=== PATIENT | female | born 1970 | race Caucasian/White ===

== ENCOUNTER → 2016-09-18 | Outpatient (CLI) | payer OTHER ==
--- NOTE | 2016-09-18 09:08 | US ---
EXAMINATION TYPE: US kidneys/renal and bladder DATE OF EXAM: 09/18/2016 COMPARISON: NONE CLINICAL HISTORY: R10.9 ABD PAIN. RIGHT FLANK PAIN X 5 DAYS AND HEMATURIA. EXAM MEASUREMENTS: Right Kidney: 10.4 X 5.9 X 5.0 cm Left Kidney: 11.0 X 5.1 X 4.4 cm Right Kidney: ECOGENIC FOCUS SEEN MID POLE = 0.94CM NO HYDRONEPHROSIS SEEN. Left Kidney: No hydronephrosis or masses seen Bladder: wnl INCIDENTAL FINDING RIGHT OVARIAN CYSTIC AREA SEEN = 3.6 X 2.4 X 3.7 CM. Urinary bladder is sonolucent. Posterior wall is normal. IMPRESSION: 1. Suggestion of right renal calcification without evidence of hydronephrosis. 2. Incidental note of a right ovarian cyst. Follow-up pelvic ultrasound in 6 weeks following the next normal menstrual period is recommended.
== END | disposition home or self-care (01) ==
LOC: RADUSWWP 07:49
PROVIDERS: ATTEND Internal Medicine
DX: N83.201 Unspecified ovarian cyst, right side (principal); R10.9 Unspecified abdominal pain
CPT/HCPCS: 76770

== ENCOUNTER → 2016-10-01 | Outpatient (CLI) | payer OTHER ==
--- NOTE | 2016-10-01 08:56 | XR ---
EXAMINATION TYPE: XR KUB DATE OF EXAM: 10/01/2016 COMPARISON: None INDICATION: Renal stone TECHNIQUE: Single view abdomen frontal projection FINDINGS: There is a normal bowel gas pattern. Psoas margins are normal. No organomegaly is present. There is a 0.4 cm calcification overlying the mid right kidney. 0.5 cm calcification is at the inferi or pole left kidney. IMPRESSION: 1. Suggestion of bilateral renal stones.
== END | disposition home or self-care (01) ==
LOC: RADXRMAIN 08:33
PROVIDERS: ATTEND Physician Assistant
DX: N20.0 Calculus of kidney (principal)
CPT/HCPCS: 74000

== ENCOUNTER → 2016-10-12 | Outpatient (CLI) | payer OTHER ==
[2016-10-12 14:18] LABS: Anisocytosis Moderate; Basophils % (A) 1 %; CHCM 28.2; Eosinophils # (A) 0.1 k/uL (0-0.7); Eosinophils % (A) 1 %; HDW 2.92; Hypochromasia Marked; Luc # (Auto) 0.11; Luc % (Auto) 2; Lymphocytes # (A) 1.9 k/uL (1.0-4.8); Lymphocytes % (A) 30 %; MCH 21.7 pg (25.0-35.0); MCHC 29.1 g/dL (31.0-37.0); MCV 74.8 fL (80.0-100.0); Mean Platelet Volume 6.6; Microcytosis Moderate; Monocytes # (A) 0.3 k/uL (0-1.0); Monocytes % (A) 4 %; Neutrophils % (A) 62 %; RBC 4.15 m/uL (3.80-5.40); WBC 6.4 k/uL (3.8-10.6); WBC (Perox) 6.82
[2016-10-12 14:26] LABS: Anion Gap 7 mmol/L; Blood Urea Nitrogen 12 mg/dL (7-17); Calcium 8.8 mg/dL (8.4-10.2); Carbon Dioxide 26 mmol/L (22-30); Chloride 109 mmol/L (98-107); Glucose 84 mg/dL (74-99); Non-African American GFR(MDRD) >60 (>60 ml/min/1.73 sqM); Potassium 3.7 mmol/L (3.5-5.1); Sodium 142 mmol/L (137-145)
== END | disposition home or self-care (01) ==
LOC: LABPAT 13:35
PROVIDERS: ATTEND Physician Assistant
DX: Z01.818 Encounter for other preprocedural examination (principal); N20.0 Calculus of kidney
CPT/HCPCS: 80048; 81025; 85025

== ENCOUNTER 2016-10-19 09:52 | Day surgery (SDC) | payer OTHER ==
[2016-10-14 08:56] VITALS: BMI 37.0
[~2016-10-19 09:52] MED LIST: DEXAMETHASONE SOD PHOSPHATE 10 MG/ML 1 ML VIAL IV ONE; LACTATED RINGERS 1,000 ML IV SCH; LIDOCAINE 1% 20 ML VIAL (10MG/ML) FOR IV START INTRADERMA PRN; ONDANSETRON 4 MG/2 ML VIAL IVP ONE; Pre Op ABX Message 1 EACH MISC MISCELLANE ONE; SCOPOLAMINE 1.5MG/72HR PATCH TRANSDERM ONE; fentaNYL (PF) 50 MCG/ML 2 ML AMP IV PRN
--- NOTE | 2016-10-19 09:53 | XR ---
EXAMINATION TYPE: XR KUB DATE OF EXAM: 10/19/2016 HISTORY: Pain Comparison: 10/01/2016 Single KUB is submitted for interpretation. Findings: Right renal calculi: 7.6 mm calculus mid to lower pole right kidney. Right ureteral calculi: None Visualized. Left renal calculi: 4.5 mm calculus lower pole left kidney. Left ureteral calculi: None Visualized. Pelvic calcifications: None Visualized. Bowel gas pattern is unremarkable. No free air. No mass effects. IMPRESSION: 1. Bilateral nephrolithiasis.
[2016-10-19 10:17] VITALS: RESP 16; TEMP 98.3
[2016-10-19] MEDS ORDERED: fentaNYL (PF) 50 MCG/ML 2 ML AMP ONE (11:01)
[2016-10-19] MEDS ORDERED: PROPOFOL 10 MG/ML 20 ML VIAL IV ONE (11:01)
[2016-10-19] MEDS ORDERED: MIDAZOLAM 2 MG/2 ML VIAL ONE (11:01)
[2016-10-19] MEDS ORDERED: KETAMINE 10 MG/ML 20 ML VIAL ONE (11:01)
[2016-10-19] MEDS ORDERED: GLYCOPYRROLATE 0.2 MG/ML 2 ML VIAL ONE (11:01)
[2016-10-19] MEDS ORDERED: LIDOCAINE 1% INJ 10MG/ML (20 ML MDV) ONE (11:01)
--- NOTE | 2016-10-19 11:54 | P.OP ---
Date of Procedure: 10/19/16 Preoperative Diagnosis: Right Renal Calculus Postoperative Diagnosis: Same Procedure(s) Performed: Right Extracorporeal Shockwave Lithotripsy (ESWL) Implants: Anesthesia: MAC Surgeon: Prabhakar Dumont Estimated Blood Loss (ml): 0 IV fluids (ml): 500 Pathology: none sent Condition: stable Disposition: PACU Indications for Procedure: She is a 46 year old female with a history of kidney stones. She has been having right flank pain for two weeks. She had a renal ultrasound done, showing a possible right renal calculus. She also had a KUB which was negative. Her urine today was not infected. She was sent for another KUB, and it shows a 4.5 mm calculus in the right kidney and a similar stone in the left kidney. She will be scheduled for right ESWL. Her urine was not infected today. In the future, she can have left ESWL. She will also need a 24 hour urine done after the stones are treated. Operative Findings: No definite fragmentation. Description of Procedure: The patient was taken to the operating room and placed on the Dornier Compact Delta II lithotripter in the supine position. The calculus was seen on biplanar fluoroscopy. Once the patient was properly positioned and sedated, lithotripsy was performed. The energy level was gradually increased per protocol, to an energy level of 5. After 200 shocks were administered, a 2 minute pause was instituted per protocol. A total of 2500 shocks were given at a rate of 80 shocks per minute. Fluoroscopy was utilized at a minimum to ensure proper positioning and determine the treatment status. The appearance of the calculus appeared to change, suggesting fragmentation may have occurred. The patient tolerated the procedure well was taken to the recovery room in stable condition. Instructions were given to strain the urine, and the patient will follow-up within one week.
[2016-10-19 13:32] VITALS: BP 141/73; PULSE 75
== END 2016-10-19 13:27 | disposition home or self-care (01) ==
LOC: ORWHC2ENDO 09:52
PROVIDERS: ATTEND Urology
DX: N20.0 Calculus of kidney (principal); J45.909 Unspecified asthma, uncomplicated; Z79.1 Long term (current) use of non-steroidal anti-inflammatories (NSAID); Z79.891 Long term (current) use of opiate analgesic; Z79.899 Other long term (current) drug therapy; Z88.5 Allergy status to narcotic agent; Z91.09 Other allergy status, other than to drugs and biological substances
CPT/HCPCS: 81025; 74000; 50590; J2250; J1100; J2405; J2001; J3010; J2704

== ENCOUNTER → 2016-10-23 | Outpatient (CLI) | payer OTHER ==
--- NOTE | 2016-10-23 10:46 | XR ---
EXAMINATION TYPE: XR KUB DATE OF EXAM: 10/23/2016 COMPARISON: 10/19/2016 INDICATION: Renal calculus TECHNIQUE: Single view abdomen FINDINGS: There is a normal bowel gas pattern. Psoas margins are normal. No organomegaly is present. There is a 0.4 cm calcification inferior pole left kidney. The right renal calculus is partially obsc ured by overlying fecal debris. This currently estimated to measure 0.9 cm in size although accurate assessment is difficult due to the fecal debris. IMPRESSION: 1. Bilateral renal stones
== END | disposition home or self-care (01) ==
LOC: RADXRMAIN 10:23
PROVIDERS: ATTEND Physician Assistant
DX: N20.0 Calculus of kidney (principal)
CPT/HCPCS: 74000

== ENCOUNTER → 2016-12-11 | Outpatient (CLI) | payer OTHER ==
[2016-12-11 08:51] LABS: Anisocytosis Slight; Basophils # (A) 0.1 k/uL (0-0.2); Basophils % (A) 1 %; CH 21.6; CHCM 28.3; Eosinophils # (A) 0.1 k/uL (0-0.7); Eosinophils % (A) 1 %; HCT 35.1 % (34.0-46.0); HGB 10.1 gm/dL (11.4-16.0); Hypochromasia Marked; Luc # (Auto) 0.13; Luc % (Auto) 2; Lymphocytes # (A) 1.5 k/uL (1.0-4.8); Lymphocytes % (A) 25 %; MCH 21.9 pg (25.0-35.0); MCHC 28.7 g/dL (31.0-37.0); MCV 76.2 fL (80.0-100.0); Mean Platelet Volume 6.5; Microcytosis Slight; Monocytes # (A) 0.3 k/uL (0-1.0); Monocytes % (A) 4 %; Neutrophils # (A) 3.9 k/uL (1.3-7.7); Neutrophils % (A) 67 %; RBC 4.61 m/uL (3.80-5.40); RDW 17.8 % (11.5-15.5); WBC 5.9 k/uL (3.8-10.6); WBC (Perox) 6.11
[2016-12-11 09:08] LABS: Anion Gap 11 mmol/L; Blood Urea Nitrogen 10 mg/dL (7-17); Carbon Dioxide 24 mmol/L (22-30); Chloride 108 mmol/L (98-107); Glucose 92 mg/dL (74-99); Non-African American GFR(MDRD) >60 (>60 ml/min/1.73 sqM); Potassium 3.8 mmol/L (3.5-5.1); Sodium 143 mmol/L (137-145)
== END | disposition home or self-care (01) ==
LOC: LABPAT 08:21
PROVIDERS: ATTEND Obstetrics & Gynecology Obstetrics
DX: Z01.812 Encounter for preprocedural laboratory examination (principal); D25.9 Leiomyoma of uterus, unspecified; N92.0 Excessive and frequent menstruation with regular cycle
CPT/HCPCS: 80051; 82565; 82947; 84520; 85025; 87086

== ENCOUNTER 2016-12-21 06:03 | Day surgery (SDC) | payer OTHER ==
[2016-12-17 13:34] VITALS: BMI 36.6
[~2016-12-21 06:03] MED LIST changes: -LIDOCAINE 1% 20 ML VIAL (10MG/ML) FOR IV START INTRADERMA PRN; -Pre Op ABX Message 1 EACH MISC MISCELLANE ONE; -SCOPOLAMINE 1.5MG/72HR PATCH TRANSDERM ONE; +ceFAZolin 2 GM in SODIUM CHLORIDE 0.9% 100 ML IVPB ONE; -fentaNYL (PF) 50 MCG/ML 2 ML AMP IV PRN
[2016-12-21 07:10] LABS: Prothrombin Time 10.1 sec (9.0-12.0)
[2016-12-21] MEDS ORDERED: LIDOCAINE 1% 20 ML VIAL (10MG/ML) FOR IV START INTRADERMA ONE (07:10)
[2016-12-21] MEDS ORDERED: SCOPOLAMINE 1.5MG/72HR PATCH TRANSDERM ONE (07:12)
[2016-12-21] MEDS ORDERED: BUPIVACAINE (PF) 0.25% 30 ML VIAL SQ ONE ×3 (07:22→07:54)
[2016-12-21] MEDS ORDERED: HYDROmorphone (PF) 1 MG/ML ONE (07:32)
[2016-12-21] MEDS ORDERED: LIDOCAINE 1% INJ 10MG/ML (20 ML MDV) ONE (07:32)
[2016-12-21] MEDS ORDERED: GLYCOPYRROLATE 0.2 MG/ML 2 ML VIAL ONE (07:32)
[2016-12-21] MEDS ORDERED: ROCURONIUM BROMIDE 10 MG/ML 10 ML VIAL IV ONE (07:32)
[2016-12-21] MEDS ORDERED: PROPOFOL 10 MG/ML 20 ML VIAL IV ONE (07:32)
[2016-12-21] MEDS ORDERED: MIDAZOLAM 2 MG/2 ML VIAL ONE (07:32)
[2016-12-21] MEDS ORDERED: fentaNYL (PF) 50 MCG/ML 2 ML AMP ONE (07:32)
[2016-12-21] MEDS ORDERED: ePHEDrine SULFATE/0.9% NACL/PF 50 MG/5 ML SYRINGE IV ONE (07:32)
[2016-12-21] MEDS ORDERED: SUCCINYLCHOLINE CHLORIDE 100 MG/5 ML SYR IV ONE (07:32)
[2016-12-21] MEDS ORDERED: NEOSTIGMINE 1 MG/ML 10 ML VIAL ONE (07:32)
[2016-12-21] MEDS ORDERED: SIMETHICONE 80 MG CHEWABLE PO PRN (09:38)
[2016-12-21] MEDS ORDERED: HYDROcodone/APAP 5-325MG 1 EACH TAB PO PRN (09:42)
--- NOTE | 2016-12-21 10:22 | P.OP ---
Date of Procedure: 12/21/16 Preoperative Diagnosis: Enlarged fibroid uterus, menorrhagia Postoperative Diagnosis: Same Procedure(s) Performed: Robotic-assisted vaginal hysterectomy, diagnostic cystoscopy Anesthesia: RAMSES Surgeon: Hortensia Robles Parimutuel Ticket Checker #1: Helen Aguilar Estimated Blood Loss (ml): 10 IV fluids (ml): 1,100 Urine output (ml): 300 Pathology: other (Uterus, cervix) Condition: stable Disposition: PACU Indications for Procedure: This is a 46-year-old female that presented with complaints of menorrhagia. On ultrasound examination and enlarged 15 cm uterus was noted with multiple enlarged fibroids. Definitive treatment was discussed with the patient in detail including medical management. Given the size of her uterus she elected definitive treatment with hysterectomy and ovarian conservation. Risks were reviewed with the patient in detail in the office prior to scheduling the surgery, including but not limited to infection, bleeding, damage to bladder, bowel, ureteric injury. Patient stated understanding informed consent was obtained at that time. Operative Findings: Enlarged uterus, normal ovaries bilaterally, normal pelvic and upper abdomen anatomy. Description of Procedure: Patient was taken to the operating room where general anesthesia was obtained without difficulty by the anesthesia department. She was then prepped and draped in the normal sterile fashion in the dorsal lithotomy position. Armijo catheter was then placed under sterile technique, and a weighted speculum was placed in the posterior vaginal vault. The anterior lip of the cervix was then grasped with a single-tooth tenaculum. The cervix was dilated and a V care uterine manipulator was advanced into the endometrial cavity as a means to manipulate the uterus throughout the procedure. The balloon was insufflated with air and the cervical cap was placed snugly against the cervix. All instruments were removed from the patient's vaginal vault at this time. Attention was then turned to the patient's abdomen where approximately 2 finger breaths above the umbilicus a small skin incision was made through this incision the Veress needle is placed. Once the procedure was deemed to be in the proper position with a drop of CO2 pressure with insufflation of CO2 gas CO2 insufflation was allowed to occur. Approximately 3 L of gas were used to obtain pneumoperitoneum. At this time the incision was elongated to 12 mm in the a 12 mm trocar and sleeve was placed through the incision and toward the pneumoperitoneum under direct visualization with the laparoscope in place. At this point the laparoscope and trocar were removed with the sheath remaining in place. The above-noted findings were visualized. The additional port sites were then placed at 10 cm lateral and 3 cm inferior to the midline port. These are 8 mm operative ports were placed under direct visualization. In the left upper quadrant a 12 mm trocar and sleeve is placed under direct visualization. At this time the da Lashanda robot was docked in usual fashion. In the right operative arm the monopolar scissors, the left operative arm the bipolar forceps. Attention was then turned to the patient's left uterine ovarian ligament. It was grasped and coagulated 2 and transected with good hemostasis being noted this continued through the broad and toward the round ligament which was transected after coagulation with good hemostasis. The bladder flap was then created from the left using sharp and blunt dissection. Attention was then turned to the patient's right uterine ovarian ligament which was visualized coagulated and transected. This continued through the broad and toward the round ligament which was coagulated and transected with good hemostasis the bladder flap was then created from the right using sharp and blunt dissection. The ascending branch of the uterine artery was then visualized on the right coagulated and transected with hemostasis being noted this was then repeated on the left ascending uterine artery hemostasis was appreciated on that side as well. At this point the only remaining attachment was a vaginal attachment therefore colpotomy incision was made in a circumferential fashion and the uterus was delivered through the vaginal opening after it was transected into 2 pieces. The vaginal cuff was then irrigated copiously hemostasis was appreciated. The vaginal cuff was then closed with [id number] sutures of 0 Vicryl. Approximate 5 sutures were used to obtain closure. At the end copious irrigation was used once again hemostasis was appreciated both ureters were visualized non-dilated, pulsating in the usual fashion. All instruments were removed from the patient's abdomen at this time. At this point attention was then turned the patient's Armijo catheter which was removed without difficulty, and a cystoscopy was performed. A cystoscope was placed through the urethra and toward the bladder the bladder bubble was noted in both ureteral orifices were visualized. The cystoscope was removed along with cystoscopy fluid and a Armijo catheter was replaced. Next attention was then turned the patient's abdomen where the skin incisions were closed with 4-0 Vicryl in a subcuticular fashion Steri-Strips and sterile dressings were applied as needed. All counts were correct 2 patient tolerated procedure well and was taken to recovery room awake and in stable condition
[2016-12-21] MEDS ORDERED: ONDANSETRON 4 MG/2 ML VIAL IVP ONE (10:44)
[2016-12-21] MEDS: HYDROmorphone 1 MG/ML 1 ML SYRINGE IVP PRN ×2 (10:44→10:50)
[2016-12-21] MEDS: LACTATED RINGERS 1,000 ML IV SCH ×2 (14:19→21:15)
[2016-12-21] MEDS: HYDROcodone/APAP 5-325MG 1 EACH TAB PO PRN ×2 (14:26→21:50)
[2016-12-21] MEDS: IBUPROFEN 600 MG TAB PO PRN (17:21)
[2016-12-21] MEDS: SENNOSIDES-DOCUSATE SODIUM 1 EACH TAB PO SCH (21:15)
[2016-12-22] MEDS: LACTATED RINGERS 1,000 ML IV SCH (06:50)
[2016-12-22 07:51] LABS: Anisocytosis Slight; Basophils % (A) 0 %; CH 21.6; CHCM 28.4; Eosinophils # (A) 0.1 k/uL (0-0.7); Eosinophils % (A) 0 %; HCT 31.7 % (34.0-46.0); HDW 3.11; HGB 9.1 gm/dL (11.4-16.0); Hypochromasia Marked; Luc # (Auto) 0.15; Luc % (Auto) 1; Lymphocytes # (A) 1.7 k/uL (1.0-4.8); Lymphocytes % (A) 13 %; MCH 21.9 pg (25.0-35.0); MCHC 28.9 g/dL (31.0-37.0); MCV 75.9 fL (80.0-100.0); Mean Platelet Volume 7.1; Microcytosis Slight; Monocytes # (A) 0.6 k/uL (0-1.0); Monocytes % (A) 4 %; Neutrophils # (A) 11.1 k/uL (1.3-7.7); Neutrophils % (A) 82 %; RBC 4.17 m/uL (3.80-5.40); RDW 17.5 % (11.5-15.5); WBC 13.6 k/uL (3.8-10.6); WBC (Perox) 14.24
--- NOTE | 2016-12-22 08:14 | P.PN ---
Subjective Principal diagnosis: Status post robotic hysterectomy with diagnostic cystoscopy This is a 46-year-old female that presented for robotic-assisted hysterectomy with diagnostic cystoscopy. She had noted menorrhagia with an enlarged uterus and fibroids. She elected definitive treatment with hysterectomy. For further details on the surgery please see the operative report. Postoperatively she has done well she is ambulated without difficulty, her Armijo was removed at 5 AM and we are awaiting of void. She is tolerating regular diet without nausea or vomiting. She states her pain is controlled with by mouth medication. Objective - Vital Signs Vital signs: Vital Signs Temp 97.4 F L 12/22/16 05:00 Pulse 65 12/22/16 05:00 Resp 16 12/22/16 05:00 BP 118/58 12/22/16 05:00 Pulse Ox 96 12/22/16 05:00 Intake & Output 12/21/16 12/22/16 12/22/16 18:59 06:59 18:59 Intake Total 1200 1000 Output Total 1060 700 Balance 140 300 Weight 93.89 kg Intake: IV 1100 Oral 100 1000 Output: Urine 1050 700 Estimated Blood Loss 10 Other: Voiding Method Indwelling Catheter Indwelling Catheter Toilet - Constitutional General appearance: Present: average body habitus - Respiratory Respiratory: bilateral: CTA - Cardiovascular Rhythm: regular - Gastrointestinal General gastrointestinal: Present: normal bowel sounds - Psychiatric Psychiatric: Present: A&O x's 3, appropriate affect - Labs CBC & Chem 7: 12/22/16 06:28 Labs: Abnormal Lab Results - Last 24 Hours (Table) 12/22/16 Range/Units 06:28 WBC 13.6 H (3.8-10.6) k/uL Hgb 9.1 L (11.4-16.0) gm/dL Hct 31.7 L (34.0-46.0) % MCV 75.9 L (80.0-100.0) fL MCH 21.9 L (25.0-35.0) pg MCHC 28.9 L (31.0-37.0) g/dL RDW 17.5 H (11.5-15.5) % Neutrophils # 11.1 H (1.3-7.7) k/uL Assessment and Plan (1) S/P hysterectomy Narrative/Plan: We will await a void this morning, once she has had a spontaneous void okay to discharge home. Discharge instructions were reviewed with the patient she is to follow up in 2 weeks. She is given prescriptions for Motrin, Kempner. Status: Acute (2) Fibroid uterus Status: Acute (3) Menorrhagia Status: Acute
--- NOTE | 2016-12-22 08:17 | P.DS ---
Providers Date of admission: 12/21/2016 Expected date of discharge: 12/22/16 Attending physician: Hortensia Robles Primary care physician: Dwight Early - Discharge Diagnosis(es) (1) S/P hysterectomy Current Visit: Yes Status: Acute (2) Fibroid uterus This is a 46-year-old female that presented to the office with complaints of menorrhagia, she subsequently had a transvaginal ultrasound revealing enlarged uterus with fibroids. She elected definitive treatment after informed consent was obtained she presented to [facility] yesterday for robotic- assisted hysterectomy with diagnostic cystoscopy. Postoperatively she did well and was without complaints on postop day 1 and is ready for discharge home after a spontaneous void. Current Visit: Yes Status: Acute (3) Menorrhagia Current Visit: Yes Status: Acute Plan - Discharge Summary New Discharge Prescriptions: No Action Cetirizine HCl [Zyrtec] 10 mg PO DAILY Discharge Medication List Cetirizine HCl [Zyrtec] 10 mg PO DAILY 12/17/16 [History] Follow up Appointment(s)/Referral(s): Hortensia Robles DO [Doctor of Osteopathic Medicine] - 2 Weeks Patient Instructions/Handouts: Hysterectomy (DC) Discharge Disposition: HOME SELF-CARE
[2016-12-22] MEDS: IBUPROFEN 600 MG TAB PO PRN (08:21)
[2016-12-22] MEDS: SENNOSIDES-DOCUSATE SODIUM 1 EACH TAB PO SCH (08:24)
[2016-12-22 08:59] VITALS: BP 124/67; PULSE 71; RESP 20; TEMP 98.8
== END 2016-12-22 10:15 | disposition home or self-care (01) ==
LOC: OR 06:03 → 6PED 09:36 → OR 12-22 10:15
PROVIDERS: ATTEND Obstetrics & Gynecology Obstetrics
DX: D25.9 Leiomyoma of uterus, unspecified (principal); N92.0 Excessive and frequent menstruation with regular cycle; Z88.3 Allergy status to other anti-infective agents; Z88.5 Allergy status to narcotic agent; Z79.899 Other long term (current) drug therapy
CPT/HCPCS: 58290; 81025; 86900; 86901; 85025; 85610; 86850; 88307; J2250; J1100; J2710; J0690; J2405; J2001; J3010; J1170; J0330; J2704

== ENCOUNTER → 2019-11-14 | Outpatient (CLI) | payer OTHER ==
--- NOTE | 2019-11-14 09:14 | XR ---
EXAMINATION TYPE: XR abdomen 1V DATE OF EXAM: 11/14/2019 COMPARISON: 10/23/2016 HISTORY: Left-sided pain TECHNIQUE: One view abdominal series FINDINGS: The osseous structures are intact. The bowel gas pattern is nonspecific. No suspicious calcification s overlying the renal outlines. Hypertrophic changes of the acetabulum. IMPRESSION: 1. Nonspecific abdomen.
== END | disposition home or self-care (01) ==
LOC: RADXRMAIN 08:53
PROVIDERS: ATTEND Urology
DX: N20.1 Calculus of ureter (principal)
CPT/HCPCS: 74018

== ENCOUNTER → 2019-11-16 | Outpatient (CLI) | payer BC ==
[2019-11-16 14:53] LABS: Basophils # (A) 0.1 k/uL (0-0.2); Basophils % (A) 1 %; Eosinophils # (A) 0.1 k/uL (0-0.7); Eosinophils % (A) 1 %; HCT 43.7 % (34.0-46.0); Lymphocytes # (A) 2.1 k/uL (1.0-4.8); Lymphocytes % (A) 24 %; MCH 29.4 pg (25.0-35.0); MCHC 32.1 g/dL (31.0-37.0); MCV 91.5 fL (80.0-100.0); Mean Platelet Volume 7.8; Monocytes # (A) 0.4 k/uL (0-1.0); Monocytes % (A) 5 %; Neutrophils # (A) 5.8 k/uL (1.3-7.7); Neutrophils % (A) 68 %; Platelet Count 178 k/uL (150-450); RBC 4.78 m/uL (3.80-5.40); WBC 8.6 k/uL (3.8-10.6)
[2019-11-16 15:05] LABS: African American GFR (CKD) >90 (>60 ml/min/1.73 sqM); Anion Gap 6 mmol/L; Blood Urea Nitrogen 14 mg/dL (7-17); Calcium 9.3 mg/dL (8.4-10.2); Carbon Dioxide 27 mmol/L (22-30); Chloride 107 mmol/L (98-107); Glucose 85 mg/dL (74-99); Non-African American GFR(CKD) 83 (>60 ml/min/1.73 sqM); Potassium 4.3 mmol/L (3.5-5.1); Sodium 140 mmol/L (137-145)
[2019-11-16 15:06] LABS: Appearance,Urine Clear (Clear); Bacteria,Urine Rare /hpf; Bilirubin,Urine Negative (Negative); Blood,Urine Trace (Negative); Color,Urine Light Yellow; Glucose,Urine (UA) Negative (Negative); Hyaline Casts,Urine 1 /lpf (0-2); Ketones,Urine Negative (Negative); Leukocyte Esterase,Urine Trace (Negative); Mucus,Urine Occasional /hpf; Nitrite,Urine Negative (Negative); PH, Urine 5.5 (5.0-8.0); Protein,Urine Negative (Negative); RBC,Urine <1 /hpf (0-5); Specific Gravity,Urine 1.009 (1.001-1.035); Squamous Epithelial Cell,Urine 2 /hpf (0-4); Urobilinogen,Urine <2.0 mg/dL (<2.0); WBC,Urine 2 /hpf (0-5)
== END | disposition home or self-care (01) ==
LOC: LABPAT 14:10
PROVIDERS: ATTEND Urology
DX: Z01.818 Encounter for other preprocedural examination (principal); N20.1 Calculus of ureter; R31.29 Other microscopic hematuria
CPT/HCPCS: 80048; 81001; 85025

== ENCOUNTER 2019-11-20 10:08 | Day surgery (SDC) | payer BC, OTHER ==
[2019-11-16 10:50] VITALS: BMI 33.8
--- NOTE | 2019-11-19 17:48 | P.GSHP ---
History of Present Illness H&P Date: 11/19/19 49 yo female with a history of stones. She recently was at [facility] er with a 7mm stone just below the iliac vessels She remained symptomatic with persistent hematuria A fu xray dint identify the stone BEcause her symptoms persist as well as the hematuria she comes for cysto with left retrograde pyelogram with probable ureteoscopy left and laser lithotripsy. - Constitutional Constitutional: Denies chills, Denies fever - EENT Eyes: denies blurred vision, denies pain Ears, nose, mouth and throat: Denies headache, Denies sore throat - Cardiovascular Cardiovascular: Denies chest pain, Denies shortness of breath - Respiratory Respiratory: Denies cough, Denies 7 - Gastrointestinal Gastrointestinal: Denies abdominal pain, Denies diarrhea, Denies nausea, Denies vomiting - Genitourinary (Female) Genitourinary: Denies dysuria, Denies hematuria - Genitourinary (Male) Genitourinary: Denies dysuria, Denies hematuria - Musculoskeletal Musculoskeletal: Denies myalgias - Integumentary Integumentary: Denies pruritus, Denies rash - Neurological Neurological: Denies numbness, Denies weakness - Psychiatric Psychiatric: Denies anxiety, Denies depression - Endocrine Endocrine: Denies fatigue, Denies weight change Past Medical History Past Medical History: Asthma Additional Past Medical History / Comment(s): kidney stones History of Any Multi-Drug Resistant Organisms: None Reported Past Surgical History: Hysterectomy, Orthopedic Surgery Additional Past Surgical History / Comment(s): Right shoulder impingement surgery X2, lithotripsy rt kidney Past Anesthesia/Blood Transfusion Reactions: Postoperative Nausea & Vomiting (PONV) Additional Past Anesthesia/Blood Transfusion Reaction / Comment(s): no hx blood transfusion Smoking Status: Never smoker - Past Family History Mother Family Medical History: Cancer Additional Family Medical History / Comment(s): skin Father Additional Family Medical History / Comment(s): arrythmia Medications and Allergies Home Medications Medication Instructions Recorded Confirmed Type Cetirizine HCl [Zyrtec] 10 mg PO DAILY 12/17/16 11/16/19 History Ibuprofen 200 - 400 mg PO Q6H PRN 11/16/19 11/16/19 History Allergies Allergy/AdvReac Type Severity Reaction Status Date / Time wheat Allergy Mild Itching Verified 08/13/20 10:31 codeine Allergy Nausea & Verified 11/16/19 10:31 Vomiting Iodine and Iodide Containing Allergy Swelling Verified 11/16/19 10:31 Produc shellfish derived [Shellfish] Allergy Swelling Verified 11/16/19 10:31 Surgical - Exam - General well developed, well nourished, moderate distress - Eyes PERRL - ENT no hearing loss - Neck trachea midline - Respiratory normal expansion, normal respiratory effort - Cardiovascular Rhythm: regular - Abdomen Abdomen: soft, tender - Integumentary no rash, no growths - Neurologic normal coordination, normal sensation - Musculoskeletal normal gait, normal posture - Psychiatric oriented to time, oriented to person, oriented to place, speech is normal, memory intact Results - Imaging Abdominal x-ray: report reviewed, image reviewed CT scan - abdomen: report reviewed, image reviewed CT scan - pelvis: report reviewed, image reviewed Assessment and Plan Assessment: Impression: Probable left ureteral stone Plan: Cysto with left retrograde pyelogram with possible ureteroscopy and laser lithotripsy left
[~2019-11-20 10:08] MED LIST changes: +AMPICILLIN 1,000 MG in SODIUM CHLORIDE 0.9% 50 ML IVPB ONE; +GENTAMICIN 100 MG in SODIUM CHLORIDE 0.9% 100 ML IVPB ONE; +MIDAZOLAM 2 MG/2 ML VIAL IV PRN; +SCOPOLAMINE 1.5MG/72HR PATCH TRANSDERM ONE; -ceFAZolin 2 GM in SODIUM CHLORIDE 0.9% 100 ML IVPB ONE; +fentaNYL (PF) 50 MCG/ML 2 ML AMP IV PRN
[2019-11-20] MEDS ORDERED: ONDANSETRON 4 MG/2 ML VIAL ONE (10:23)
[2019-11-20] MEDS ORDERED: LIDOCAINE 1% (10MG/ML) FOR IV START SQ ONE (10:36)
[2019-11-20] MEDS ORDERED: fentaNYL (PF) 50 MCG/ML 2 ML AMP ONE (10:44)
[2019-11-20] MEDS ORDERED: KETOROLAC 30 MG/ML 1 ML VIAL ONE (10:44)
[2019-11-20] MEDS ORDERED: PROPOFOL 10 MG/ML 20 ML VIAL IV ONE (10:44)
[2019-11-20] MEDS ORDERED: MIDAZOLAM 2 MG/2 ML VIAL ONE (10:44)
[2019-11-20] MEDS ORDERED: LIDOCAINE 1% INJ 10MG/ML (20 ML MDV) ONE (10:44)
[2019-11-20] MEDS ORDERED: diphenhydrAMINE 50 MG/ML 1 ML VIAL ONE (10:44)
[2019-11-20] MEDS ORDERED: SUCCINYLCHOLINE CHLORIDE 100 MG/5 ML SYR IV ONE (10:44)
[2019-11-20] MEDS ORDERED: ePHEDrine SULFATE/0.9% NACL/PF 50 MG/5 ML SYRINGE IV ONE (10:44)
--- NOTE | 2019-11-20 11:04 | XR ---
EXAMINATION TYPE: XR KUB DATE OF EXAM: 11/20/2019 Comparison: 10/23/2016 Clinical History: 49-year-old female preoperative assessment for the renal calculus. Findings: Nonobstructive bowel gas pattern. Mild stool in the right side of the abdomen. Suspicious calcificati on is not clearly identified. Impression: As above.
[2019-11-20] MEDS ORDERED: IOPAMIDOL-300 50ML BTL MISCELLANE ONE (11:06)
--- NOTE | 2019-11-20 12:04 | P.OP ---
Date of Procedure: 11/20/19 Preoperative Diagnosis: Left ureteral calculus Postoperative Diagnosis: Same Procedure(s) Performed: Cystoscopy, left retrograde pyelogram, left ureteroscopy with laser lithotripsy, placement of 624 double-J catheter Anesthesia: RAMSES Surgeon: Salvador Trinh Estimated Blood Loss (ml): 0 Pathology: other (Stone) Condition: stable Disposition: PACU Indications for Procedure: The patient is 49 with a history of ureteral stones. She has a 7 mm stone just at the level of the iliac vessels she comes for ureteroscopy she is unable to pass it and continues to have colic Description of Procedure: Patient is brought to the operating suite. She can general anesthesia. She's placed lithotomy position with sterile prep and drape. Cystoscopy Foroblique lens and 21-Dominican sheath identifies normal urethra. The ureteral orifices are normal. The bladder mucosa is unremarkable. Within a cone-tipped catheter a retrograde Performed the ureter shows a filling defect about the iliac vessels. I dilate the ureteral orifice with the 8 cone-tipped catheter. I passed the semirigid scope. The ureters quite spastic and tight. I'm eventually able to get the scope to the stone. I passed an 035 wire through the scope in order to do so. Through the same scope 175 laser probe was used to break the stone into tiny fragments . The fragments are basketed. I removed the scope. Over the wires and passed a 624 double-J catheter that coils in the renal pelvis and the bladder. the bladder is drained of stone fragments that were collected. the patient is awakened and returned recovery in good condition Impression successful ureteroscopy with laser lithotripsy left. The patient be discharged home upon recovery and found the office in one week for stent removal.
[2019-11-20 12:22] VITALS: RESP 16; TEMP 97.1
[2019-11-20] MEDS ORDERED: HYDROcodone/APAP 5-325MG 1 EACH TAB ONE (12:59)
[2019-11-20] MEDS ORDERED: HYDROcodone/APAP 5-325MG 1 EACH TAB PO ONE (13:00)
[2019-11-20 13:35] VITALS: BP 128/89; PULSE 67
--- NOTE | 2019-11-20 15:40 | FL ---
EXAMINATION TYPE: FL urography retrograde DATE OF EXAM: 11/20/2019 FLUOROSCOPY Fluoroscopy time of 50 seconds was used during cystoscopy and stent insertion on the left with urolog ic intervention for left-sided calculus. 3 image/s document/s the procedure.
== END 2019-11-20 13:41 | disposition home or self-care (01) ==
LOC: OR 10:08
PROVIDERS: ATTEND Urology
DX: N20.1 Calculus of ureter (principal); J45.909 Unspecified asthma, uncomplicated; Z87.442 Personal history of urinary calculi; Z90.710 Acquired absence of both cervix and uterus; Z98.890 Other specified postprocedural states; Z87.39 Personal history of other diseases of the musculoskeletal system and connective tissue; Z91.89 Other specified personal risk factors, not elsewhere classified; Z79.899 Other long term (current) drug therapy; Z88.5 Allergy status to narcotic agent; Z91.048 Other nonmedicinal substance allergy status; Z91.018 Allergy to other foods; Z91.013 Allergy to seafood; Z80.8 Family history of malignant neoplasm of other organs or systems; Z82.49 Family history of ischemic heart disease and other diseases of the circulatory system
CPT/HCPCS: 82365; 74420; 74018; 52356; C2625; C1758; C1769; J2250; J1200; J1100; J2001; J3010; J1885; J1580; J0290; J0330; J2704; Q9967

== ENCOUNTER → 2022-07-31 | Outpatient (CLI) | payer BC ==
--- NOTE | 2022-07-31 13:33 | XR ---
EXAMINATION TYPE: XR KUB DATE OF EXAM: 07/31/2022 1:20 PM CLINICAL HISTORY: Kidney calculus. Left flank pain. TECHNIQUE: Two Upright KUB images of the abdomen are obtained. COMPARISON: Prior abdominal x-ray November 20, 2019. FINDINGS: Scattered gas is seen in non-distended small bowel loops. Gas and fecal material is seen in non-distended colon. There is no visceromegaly, pneumoperitoneum, or abnormal calcification apprecia marilyn. The lung bases are clear and the osseous structures are intact. IMPRESSION: No definite nephrolithiasis. No significant change from prior.
== END | disposition home or self-care (01) ==
LOC: RADXRMAIN 10:58
PROVIDERS: ATTEND Urology
DX: N20.0 Calculus of kidney (principal)
CPT/HCPCS: 74018

== ENCOUNTER → 2022-08-14 | Outpatient (CLI) | payer BC ==
--- NOTE | 2022-08-17 08:13 | CT ---
EXAMINATION TYPE: CT abdomen pelvis wo con DATE OF EXAM: 08/14/2022 COMPARISON: HISTORY: Left flank pain x [address] DLP: 810.4 mGycm Automated exposure control for dose reduction was used. TECHNIQUE: Helical acquisition of images was performed from the lung bases through the pelvis. FINDINGS: The lungs are clear. Gallbladder is normal and there is no gallstone, wall thickening, pericholecystic fluid or distention . There is no biliary ductal dilatation. There is no organomegaly of the liver, pancreas, spleen or adrenal glands. There is marked left hydronephrosis and hydroureter to the level of L5-S1 where there is a nonobstruc ting 6.7 mm calcification.. There is a 4.3 mm nonobstructing mid right renal calcification. The caliber of the abdominal aorta is normal and there is no retroperitoneal adenopathy or hemorrhage . The bowel loops are normal in caliber is no evidence of obstruction. No inflammatory changes are iden tified in the mesentery and there is no free intraperitoneal air or fluid. There is no pelvic mass, free fluid, abscess or adenopathy. There are surgical absence of the uterus. The osseous structures and soft tissues are unremarkable. IMPRESSION: 1. Marked left hydronephrosis secondary to a 6.7 mm calcification in the distal left ureter at the le ed of the L5-S1. 2. Nonobstructing 4.3 mm right renal calcification.
== END | disposition home or self-care (01) ==
LOC: RADCTMAIN 17:15
PROVIDERS: ATTEND Urology
DX: N13.2 Hydronephrosis with renal and ureteral calculous obstruction (principal)
CPT/HCPCS: 74176

== ENCOUNTER → 2022-08-21 | Outpatient (CLI) | payer BC ==
[2022-08-21 15:15] LABS: HCT 45.6 % (37.2-46.3); HGB 14.8 g/dL (12.0-15.0); MCH 29.9 pg (27.0-32.0); MCHC 32.5 g/dL (32.0-37.0); MCV 92.1 fL (80.0-97.0); Mean Platelet Volume 10.1 fL (9.5-12.2); NRBC Per 100 WBC 0 /100 WBCS (0.0-0.0); Platelet Count 225 X 10*3/uL (140-440); RBC 4.95 X 10*6/uL (4.10-5.20); RDW 13.2 % (11.5-14.5); WBC 8.14 X 10*3/uL (4.50-10.00)
[2022-08-21 15:26] LABS: African American GFR (CKD) 103.5 (60.0-200.0); Anion Gap 7.5 mmol/L (10.00-18.00); BUN/Creat Ratio 14.06 Ratio (12.00-20.00); Blood Urea Nitrogen 10.9 mg/dL (9.0-27.0); Calcium 9.6 mg/dL (8.7-10.3); Carbon Dioxide 29.4 mmol/L (20.0-27.5); Non-African American GFR(CKD) 89.3 (60.0-200.0); Potassium 4.3 mmol/L (3.5-5.5)
[2022-08-21 15:31] LABS: Appearance,Urine Clear (Clear); Bilirubin,Urine Negative (Negative); Blood,Urine Negative (Negative); Color,Urine Yellow (Yellow); Ketones,Urine Negative (Negative); Nitrite,Urine Negative (Negative); PH, Urine 6.5 (5.0-8.0); Specific Gravity,Urine 1.015 (1.001-1.030); Urobilinogen,Urine 0.2 (0.2,1.0)
== END | disposition home or self-care (01) ==
LOC: LABPAT 09:31
PROVIDERS: ATTEND Urology
DX: Z01.812 Encounter for preprocedural laboratory examination (principal); N20.1 Calculus of ureter; R31.29 Other microscopic hematuria
CPT/HCPCS: 36415; 80048; 81003; 85027; 87086

== ENCOUNTER 2022-09-02 07:59 | Day surgery (SDC) | payer BC ==
--- NOTE | 2022-09-01 11:30 | P.GSHP ---
History of Present Illness H&P Date: 09/01/22 52-year-old female with a history of stones who presented with left flank pain. It had been intermittent for 1 year. Her urine was clear. I did a CAT scan identifying a 7 mm left distal ureteral stone causing notable obstruction both acute and chronic. She comes for ureteroscopy and laser lithotripsy. - Constitutional Constitutional: Denies chills, Denies fever - EENT Eyes: denies blurred vision, denies pain Ears, nose, mouth and throat: Denies headache, Denies sore throat - Cardiovascular Cardiovascular: Denies chest pain, Denies shortness of breath - Respiratory Respiratory: Denies cough, Denies 7 - Gastrointestinal Gastrointestinal: Denies abdominal pain, Denies diarrhea, Denies nausea, Denies vomiting - Genitourinary (Female) Genitourinary: Denies dysuria, Denies hematuria - Genitourinary (Male) Genitourinary: Denies dysuria, Denies hematuria - Musculoskeletal Musculoskeletal: Denies myalgias - Integumentary Integumentary: Denies pruritus, Denies rash - Neurological Neurological: Denies numbness, Denies weakness - Psychiatric Psychiatric: Denies anxiety, Denies depression - Endocrine Endocrine: Denies fatigue, Denies weight change Past Medical History Past Medical History: Asthma, Hypertension Additional Past Medical History / Comment(s): kidney stones, left flank pain, seasonal allergies. History of Any Multi-Drug Resistant Organisms: None Reported Past Surgical History: Hysterectomy, Orthopedic Surgery Additional Past Surgical History / Comment(s): Right shoulder impingement surgery X3, lithotripsy rt kidney Past Anesthesia/Blood Transfusion Reactions: Postoperative Nausea & Vomiting (PONV) Additional Past Anesthesia/Blood Transfusion Reaction / Comment(s): no hx blood transfusion. 02 a little low after last procedure. had benadryl Smoking Status: Never smoker - Past Family History Mother Family Medical History: Cancer Additional Family Medical History / Comment(s): skin Father Additional Family Medical History / Comment(s): arrythmia Medications and Allergies Home Medications Medication Instructions Recorded Confirmed Type Cetirizine HCl [Zyrtec] 10 mg PO DAILY 12/17/16 08/27/22 History Ibuprofen 200 - 400 mg PO Q6H PRN 11/16/19 08/27/22 History amLODIPine BESYLATE 5 mg PO DAILY 08/27/22 08/27/22 History Allergies Allergy/AdvReac Type Severity Reaction Status Date / Time wheat Allergy Mild Itching Verified 08/27/22 15:54 codeine Allergy Nausea & Verified 08/27/22 15:54 Vomiting Iodine and Iodide Containing Allergy Swelling Verified 08/27/22 15:54 Produc shellfish derived [Shellfish] Allergy Swelling Verified 08/27/22 15:54 Surgical - Exam - General well developed, well nourished, no distress - Eyes normal ocular movement, no icteric - ENT no hearing loss, no congestion - Neck no masses, trachea midline - Respiratory normal respiratory effort, clear to auscultation - Abdomen Abdomen: soft, non tender, no guarding, no rigid, no rebound - Integumentary no rash, no abnormal pigmentation - Neurologic no disoriented, no combative - Psychiatric oriented to time, oriented to person, oriented to place, speech is normal, memory intact Results - Imaging CT scan - abdomen: report reviewed, image reviewed CT scan - pelvis: report reviewed, image reviewed Assessment and Plan Assessment: Impression: Left ureteral stone with obstruction Plan: Left ureteroscopy with laser lithotripsy possible stent.
[~2022-09-02 07:59] MED LIST changes: -AMPICILLIN 1,000 MG in SODIUM CHLORIDE 0.9% 50 ML IVPB ONE; -DEXAMETHASONE SOD PHOSPHATE 10 MG/ML 1 ML VIAL IV ONE; -GENTAMICIN 100 MG in SODIUM CHLORIDE 0.9% 100 ML IVPB ONE; +LIDOCAINE 1% (10MG/ML) FOR IV START INTRADERMA PRN; -MIDAZOLAM 2 MG/2 ML VIAL IV PRN; -SCOPOLAMINE 1.5MG/72HR PATCH TRANSDERM ONE
[2022-09-02 08:28] VITALS: TEMP 97.1
--- NOTE | 2022-09-02 08:40 | XR ---
EXAMINATION TYPE: XR KUB DATE OF EXAM: 09/02/2022 Comparison: 07/23/2022 Clinical History: 52-year-old female left-sided kidney stones. Preoperative evaluation Findings: Nonobstructive bowel gas pattern. Mild stool in the right side of the abdomen. No suspicious calcific ations clearly identified. Impression: No suspicious calcifications clearly identified by radiographs.
[2022-09-02] MEDS ORDERED: DEXAMETHASONE SOD PHOSPHATE 4 MG/ML 1 ML VIAL IV ONE (08:42)
[2022-09-02] MEDS ORDERED: fentaNYL (PF) 50 MCG/ML 2 ML AMP ONE (09:20)
[2022-09-02] MEDS ORDERED: MIDAZOLAM 2 MG/2 ML VIAL ONE (09:20)
[2022-09-02] MEDS ORDERED: PROPOFOL 10 MG/ML 20 ML VIAL IV ONE (09:20)
[2022-09-02] MEDS ORDERED: ePHEDrine 50 MG/ML 1 ML VIAL ONE (09:20)
[2022-09-02] MEDS ORDERED: GLYCOPYRROLATE 0.2 MG/ML 2 ML VIAL ONE (09:20)
[2022-09-02] MEDS ORDERED: NEOSTIGMINE 1 MG/ML 10 ML VIAL ONE (09:20)
[2022-09-02] MEDS ORDERED: LIDOCAINE 2% INJ 20 MG/ML (2 ML VIAL) ONE (09:20)
[2022-09-02] MEDS ORDERED: SUCCINYLCHOLINE CHLORIDE 200 MG/10 ML VIAL IV ONE (09:20)
[2022-09-02] MEDS ORDERED: KETOROLAC 15 MG/ML 1 ML VIAL ONE (09:20)
[2022-09-02] MEDS ORDERED: ROCURONIUM 10 MG/ML (5 ML VIAL) IV ONE (09:20)
[2022-09-02] MEDS ORDERED: IOPAMIDOL-370 100ML BTL MISCELLANE ONE ×2 (09:42)
--- NOTE | 2022-09-02 10:24 | P.OP ---
Date of Procedure: 09/02/22 Preoperative Diagnosis: Left ureteral stone with obstruction Postoperative Diagnosis: Same Procedure(s) Performed: Cystoscopy, left retrograde pyelogram, balloon dilation of ureteral stricture. Left ureteroscopy with laser lithotripsy, placement of 624 stent Anesthesia: RAMSES Surgeon: Salvador Trinh Estimated Blood Loss (ml): 0 Pathology: other (Stone) Condition: stable Disposition: PACU Indications for Procedure: Patient is 52. She has a history of stones. She's had persistent left-sided flank pain. KUB did not identify stone but a CAT scan identified a 7 mm stone at the level of the iliac vessels. He comes for cystoscopy left ureteroscopy and laser lithotripsy. The preoperative KUB does not identify a stone on the retrograde first. Description of Procedure: Patient brought operating suite. Given general anesthesia. Placed lithotomy position with sterile prep and drape. Cystoscopy Foroblique lens and 21-[place] sheath identifies a normal urethra. There is some stony debris in the floor the bladder. The bladder mucosa was unremarkable. A left retrograde pyelograms performed. The Terminal ureter is irregular and stenotic. There is also very narrowed area at the level of the iliac vessels. There is proximal hydroureteronephrosis. I don't see a distinct stone that she needs ureteroscopy given the computed tomography scan as well as the appearance of the ureter on the pyelogram. I then introduced an 035 wire up the left ureter. Over the wire I first passed a 12 mm dilating balloon. The left intramural tunnel was dilated. There is a dense stricture at the left ureteral vesicle junction. I then made more stricture at the level of the iliac vessels whether this is stone or strictures indeterminate. I passed the dilating balloon into this point and dilate the ureter. I then removed the dilating balloon and passed the ureteroscope up to this level and there is indeed a stone impacted into the wall of the ureter. A 3 and 75 laser probe I break the stone into tiny fragments and flushed out of the real tiny fragments and basket the largest. I pass the scope above the level a stone and the ureter is hydronephrotic. I then removed the ureteroscope. Over the wire is passed a 6 x 24 double-J catheter that coils in the left renal pelvis and in the bladder. The patient awake and returned recovery in good condition. She tolerated the procedure well be discharged home upon recovery. She will be seen in the office about 2 weeks for stent removal.
[2022-09-02 11:19] VITALS: PULSE 51; RESP 16
[2022-09-02 11:46] VITALS: BP 125/85
--- NOTE | 2022-09-02 18:00 | FL ---
EXAMINATION TYPE: FL guidance operating room DATE OF EXAM: 09/02/2022 FLUOROSCOPY Fluoroscopy time of 5 minutes 30 seconds was used during urologic intervention for left-sided kidney stone. 10 image/s document/s the procedure. DOSE AREA PRODUCT (DAP) UGY*M,MGY*CM: 54.4
== END 2022-09-02 11:55 | disposition home or self-care (01) ==
LOC: OR 07:59
PROVIDERS: ATTEND Urology
DX: N20.1 Calculus of ureter (principal); N13.1 Hydronephrosis with ureteral stricture, not elsewhere classified; J45.909 Unspecified asthma, uncomplicated; I10 Essential (primary) hypertension; Z98.890 Other specified postprocedural states; Z79.1 Long term (current) use of non-steroidal anti-inflammatories (NSAID); Z79.899 Other long term (current) drug therapy; Z91.018 Allergy to other foods; Z88.5 Allergy status to narcotic agent; Z91.048 Other nonmedicinal substance allergy status; Z91.013 Allergy to seafood
CPT/HCPCS: 82365; 74018; 52356; C1758; C1769; J2250; J0330; J1100; J2710; J0690; J2405; J3010; J1885; J2704; Q9967; J2001

== ENCOUNTER → 2023-05-14 | Outpatient (CLI) | payer BC, OTHER | END | disposition home or self-care (01) | LOC: RADNMMAIN 11:05 | PROVIDERS: ATTEND Family Medicine | DX: Z53.9 Procedure and treatment not carried out, unspecified reason (principal) ==

== ENCOUNTER 2024-09-21 06:06 | Day surgery (SDC) | payer BC, OTHER ==
[2024-09-20 09:13] VITALS: BMI 36.1
[2024-09-21 06:28] VITALS: RESP 16; TEMP 97.7
[2024-09-21] MEDS: diphenhydrAMINE 50 MG/ML 1 ML VIAL IVP STA (07:06)
[2024-09-21] MEDS: IV FLUID CONTINUATION 1,000 ML IV ONE (07:10)
[2024-09-21] MEDS: LACTATED RINGERS 1,000 ML BAG IV STA (07:16)
[2024-09-21] MEDS ORDERED: DEXAMETHASONE SOD PHOSPHATE 10 MG/ML 1 ML VIAL ONE (07:23)
[2024-09-21] MEDS ORDERED: IOPAMIDOL M300 15ML VIAL ONE (07:23)
--- NOTE | 2024-09-21 07:48 | P.PCN ---
Description of Procedure: PROCEDURE 1. Injection of radio contrast material into cervical epidural space, cervical epidurogram, interpretation of cervical epidurogram, Cervical epidural steroid injection under fluoroscopic guidance, C6-7 (fluoroscopy images available in the radiology department ) 2. Cervical epidurogram. PREOPERATIVE DIAGNOSIS: 1- Cervical Degenerative Disc Diseases 2- Cervical radiculopathy., 3-cervical spondylosis with cervical Facet arthropathy without myelopathy.4-cervical spinal stenosis POSTOPERATIVE DIAGNOSIS: : 1- Cervical Degenerative Disc Diseases , 2- Cervical radiculopathy. 3-,cervical spondylosis with cervical Facet arthropathy without myelopathy. 4-cervical spinal stenosis ANESTHESIA: Local anesthetics infiltration. In the OR continuous pulse ox, EKG, blood pressure and verbal communication was maintained. EBL : None PROCEDURE INDICATION: The patient with neck pain and radiculitis unresponsive to conservative treatment consents for procedure. Discussed the procedure, alternatives and possible complications which may include increased pain, infection, bleeding, nerve damage, paralysis all of which could be permanent. Patient understands and all questions were answered. PROCEDURE DESCRIPTION : After getting consent patient was taken to the OR , positioned in prone position and time out was completed. A pillow was placed under the patients chest to increase the cervical interlaminar space. The cervical area was prepped and draped in the usual sterile fashion. Using anterior-posterior fluoroscopy, interlaminar space was identified and the skin over this site was marked and then infiltrated with 1% lidocaine subcutaneously. Subsequently, a 20-gauge 3-1/2-inch Tuohy epidural needle was inserted and advanced toward the epidural space with the loss of resistance technique using a syringe filled with preservative-free normal saline and guided by AP and lateral fluoroscopy. Negative CSF, negative blood, negative paresthesia. The correct needle position in the epidural space was verified with the injection of 2 mL of the water soluble contrast dye Isovue-200 and observing an excellent epidurogram with the epidural spread of the dye, after repeat negative aspiration 3 mL solution was injected which consists of 1 mL of preservative-free normal saline mixed with 2 mL of 20 mg dexamethasone and a washout of epidurogram was seen. Needle was withdrawn intact, skin was cleansed, and bandages were applied. Disposition: Patient tolerated the procedure well. No complication. Patient was placed in supine position and transferred to the recovery room area in stable condition and there was no evidence of upper or lower extremity motor or sensory deficit after the procedure patient was discharged from recovery room after discharge criteria met and home discharge instructions was given by the staff and patient will follow with the pain clinic in 2-4 weeks
[2024-09-21 08:05] VITALS: BP 123/78; PULSE 62
--- NOTE | 2024-09-21 08:55 | FL ---
EXAMINATION TYPE: FL guided pain mgmt statistic DATE OF EXAM: 09/21/2024 7:47 AM COMPARISON: Pre Operative Images if available both CT/MRI or plain film CLINICAL INDICATION: Female, 54 years old with history of KORINA; TECHNIQUE: FL guided pain mgmt statistic, multiple fluoroscopic images provided for procedure. DAP: 0.51346 mGym2 Gycm2 uGym2 cGycm2 or equivalent. FINDINGS: IMPRESSION: 1. Report was generated for administrative purposes only. 2. Please see the operative/procedural note for further details. [facility], , 09/21/2024 8:53 AM
== END 2024-09-21 08:45 | disposition home or self-care (01) ==
LOC: ORPAIN 06:06
PROVIDERS: ATTEND Pain Medicine Interventional Pain Medicine
DX: M50.123 Cervical disc disorder at C6-C7 level with radiculopathy (principal); M47.22 Other spondylosis with radiculopathy, cervical region; M48.02 Spinal stenosis, cervical region; Z91.041 Radiographic dye allergy status
CPT/HCPCS: 62321; J1200; J1100; Q9967

== ENCOUNTER → 2024-10-26 | Outpatient (CLI) | payer BC, OTHER ==
[2024-10-26 10:44] VITALS: BP 127/90; PULSE 69; RESP 16; TEMP 97.3
--- NOTE | 2024-10-26 12:52 | P.PAINPG ---
Objective - Vital Signs Vital signs: Intake & Output 10/25/24 10/26/24 10/26/24 18:59 06:59 18:59 Weight 92.533 kg PQRS Measure Charge Sheet Comment: HISTORY OF PRESENT ILLNESS: A 54 yr old female presents today w severe and chronic neck pain > 1 yr secondary to C5-C7 radiculopathy, spondylosis and facet arthropathy without myelopathy for evaluation s/p CHASE C6-C7 #1. Pt states she experienced 80% pain relief x3 wks s/p procedure. Pt states pain level is provoked at 3 /10 in intensity, constant, localized in the R cervical spine, predominantly axial, sharp in character w occasional shooting pain towards the RUE. Pain is provoked by lifting. Pain is alleviated by PT x 6 wks which she is currently in (August-Sep 2024), medications, topical, repositioning and rest . Cervical disability score at 24. Interventional procedures include CHASE C6-C7 x1 (09/27) Medications include Neurontin, Tyl REVIEW OF ORGAN SYSTEMS: CONSTITUTIONAL: No fevers or chills. No recent weight loss. NEUROLOGICAL: + numbness and tingling along the distal extremities. No seizure disorders or headaches. MUSCULOSKELETAL: + pain PSYCHIATRIC: Denies current depression or suicidal thoughts. Physical Examinations : Constitutional : Cooperative , not in acute distress . Neurologic : Cranial nerve II to XII intact. No focal neurological deficits. Psychiatric : alert & oriented x 3. Matching mood & appropriate affect. Judgment & insight intact. Musculoskeletal : Cervical Spine Motor strength in the deltoid and biceps: Normal right side. Normal Left side Motor strength biceps and the wrist extensors: Normal right side . Normal left side Motor strength in the triceps muscle: Normal right side. Normal left side Deep tendon reflexes: Normal at the biceps. Normal at Brachioradialis. Normal at triceps Vertebral body tenderness to deep palpation over C6 Cervical facet loading test: positive bilaterally Spurling test: positive bilaterally Neck distraction test: positive BL C6- C7 Kalli sign: positive bilaterally Lumbar spine Motor strength lower extremities ,thigh and legs 5/5 Right side , 5/5 Left side Deep tendon reflexes : Normal Knee Jerk. Normal Ankle Jerk Vertebral body tenderness over Marsh Test positive Lumbar facet Loading Test: positive Right / positive Left Range of motion of the lumbar spine Flexion 30 degrees, extension 10 degrees Straight Leg Raise test: Left/ Right positive at degrees Audra test: positive right / positive left. Severe tenderness over the Sacroiliac joint on the Right / Left sides Gaenslen test: positive bilaterally Seated flexion test: positive bilaterally. Sacral spine : Severe tenderness over the Sacroiliac joint: right side / left side Range of motion: Flexion of the lumbar spine <60 degrees Range of motion: Extension of the lumbar spine <20 degrees Gaenslen's Test positive Audra test: positive right side / left side Thigh Thrust Test Sacral Thrust Test Imaging: MRI non contrast cervical spine from 08/08/24 reviewed Assessment/ Plan : C5-C6 stenosis, C5-C7 radiculopathy Will manage residual pain and may RTC on an as needed basis. All questions answered. I have spent greater than 30 minutes on patient care today. Dr Gilliam was available by phone for the evaluation of this patient. The time was used to r eview the medical records including relevant urine studies and Prescription history (MAPs), review of the available imaging, evaluation and examination of the patient, coordination of care with the medical staff and if applicable referring physicians, as well as creation of the medical record PQRS Narrative: Smoking Status Never smoker Hx Alcohol Use (MH) No Home Medications: Ambulatory Orders amLODIPine BESYLATE 5 mg PO DAILY 08/27/22 Ibuprofen [Motrin Ib] 200 - 400 mg PO Q8H PRN 09/20/24 Rosuvastatin [Crestor] 10 mg PO DAILY 09/20/24 lisinopriL [Zestril] 10 mg PO DAILY 09/20/24 Controlled Substance Measures - Controlled Substance Measures Is patient prescribed a controlled substance at discharge?: No
== END ==
LOC: PNWHC3 10:22
PROVIDERS: ATTEND Specialist
DX: M47.22 Other spondylosis with radiculopathy, cervical region (principal); M48.02 Spinal stenosis, cervical region; Z91.018 Allergy to other foods; Z91.041 Radiographic dye allergy status; Z88.5 Allergy status to narcotic agent; Z91.013 Allergy to seafood
CPT/HCPCS: 99211